=== PATIENT | male | born 1975 | race Caucasian/White ===

== ENCOUNTER 2016-06-28 21:39 | Inpatient (IN) | payer BC ==
--- NOTE | ~2016-06-28 | IDS ---
Interim Discharge Summary [facility] [address] [place] [place]. [address] NAME: STEVENSON FELIX JR : 79 STATUS : ADM IN PAT#: [id number] AGE: 41 ADM/REG DATE : 06/29/16 MR#: [id number] REPORT SERV DATE: 07/11/16 DICTATED BY: ROXIE CAMACHO DATE: 07/11/16 REPORT STATUS : Draft TRANSCRIBED BY: MODL DATE: 07/11/16 ADMISSION DATE: 06/29/2016 DISCHARGE DATE: DIAGNOSES: 1. Alcoholic hepatitis. 2. Hyperbilirubinemia with jaundice secondary to above. 3. Acute kidney injury with decreased urine output, resolved. 4. Left lower lobe infiltrate/pneumonia, treated. 5. Metabolic acidosis secondary to above. 6. Hepatic encephalopathy. 7. Edema secondary to hypoalbuminemia. CONSULTANTS: 1. Hepatology, Dr. Arcadio Melvin. 2. Hospitalist, Dr. Powell, Dr. Cerna, and Dr. Camacho. HOSPITAL COURSE: This interim summary is for the interim week of 07/05/2016 through 07/11/2016; therefore, please refer to H and P from Dr. Powell and interim summary from Dr. Cerna for further details. In short, this is a 41-year-old male, who presented from [place] due to family living locally in [place] with jaundice, confusion, shortness of breath, and severe debility with signs of left lower lobe pneumonia and acute kidney injury and the patient was treated with IV Zosyn for his pneumonia. Also, seen by Dr. Arcadio Melvin for his severe liver failure. During his initial care, he was seen by Dr. Cerna and the patient was placed on prednisone for an attempt to see if there was any improvement with MELD score/liver function. Initially, family were wondering if his liver failure could be secondary to Prilosec, for which the patient began to take shortly before presentation, Dr. Melvin does not agree and also due to the patient's history of increased alcohol intake, we made a definitive diagnosis of alcoholic hepatitis. Steroids were an attempt to see if there was any improvement. Per the chart, per Dr. Cerna, the patient's initial MELD score was 34. Currently, MELD score is at 24. His liver functions did have mild improvement and then worsened, and now there is improvement at this time, but very slow. There have been talks prior to taking over the patient's care concerning hospice with the patient and family by Dr. Cerna. Initially, the family was resistant. However, now, mother was stating at discharge they may consider a home hospice. The patient is initially supposed to have a seven-day trial of prednisone to check for improvement at 40 mg a day, but Dr. Melvin recommends to discontinue prednisone due to not much improvement with liver function, although the patient has had some very slow mild improvement with liver function. Now, the patient's prednisone is currently at 20 mg a day for a slow taper. The patient has some excellent family support and is encouraged a high-protein diet and is eating with good family support, who is encouraging high-protein intake, and also ambulating in the hallways with assistance with family. The patient was possibly to be discharged last week with home hospice and did receive medication assistance from Case Management for any new hepatic medications. However, the patient developed some acute kidney injury with decreased urine output and required management with low-dose IV fluid. Also, the patient had severe metabolic acidosis secondary to his liver failure as well as GI loss due to the patient Interim Discharge Summary [facility] [address] [place]. [address] NAME: ISIDROSTEVENSON Felipe PANG : 79 STATUS : ADM IN PAT#: [id number] AGE: 41 ADM/REG DATE : 06/29/16 MR#: [id number] REPORT SERV DATE: 07/11/16 DICTATED BY: ROXIE ACMACHO DATE: 07/11/16 REPORT STATUS : Draft TRANSCRIBED BY: QUETA DATE: 07/11/16 being on lactulose. The patient does have high stool output. His lactulose has been decreased from t.i.d. down to b.i.d., and he continues on Xifaxan. His sodium bicarb tablet dose has been increased today, and also he is on a bicarb drip that has been ordered. Daily labs also will be ordered for monitoring of electrolytes. Family and the patient understand and have been educated on poor prognosis from Dr. Melvin, please refer to his consult note also for further details. Also, important to note the patient has not had any DTs during this hospital stay. At this time, we will continue with current management, increase bicarb supplementation, and follow up with LFTs for now. The patient will be followed by Dr. Bria Jansen, who will attend to this patient's care initiating on 07/12/2016. HARLAN/MODL Roxie Camacho M.D. / [id number] CC: Roxie Camacho M.D.
--- NOTE | ~2016-06-28 | CN ---
Consultation Report [facility] [address] [place]. [address] NAME: STEVENSON FELIX JR : 79 STATUS : ADM IN PAT#: [id number] AGE: 41 ADM/REG DATE : 06/29/16 MR#: [id number] REPORT SERV DATE: 07/14/16 DICTATED BY: SULEMA MCGREGOR DATE: 07/13/16 REPORT STATUS : Draft TRANSCRIBED BY: MODL DATE: 07/13/16 DATE OF CONSULTATION: REASON FOR CONSULTATION: Acute kidney injury. ASSESSMENT: Suspect the patient had initially presented with type 2 hepatorenal syndrome. He has already had an elevated creatinine on his initial presentation on 06/29/2016 and creatinine has fluctuated to as low as 0.93 on 07/05/2016, but now up to 2.0 in the setting of what appears to be developing gram-negative sepsis in addition to the fact that he has likely going into type 1 hepatorenal syndrome. PLAN: Supportive Care for now to treat his metabolic acidosis that has been developing over the past 24 to 48 hours, changed from respiratory alkalosis now to a combined metabolic and both acidosis. In addition, placed on hypertonic bicarbonate infusion. We will correct his coagulopathy with FFP. He has already been placed on Sandostatin, Primatene, and IV albumin. I doubt whether we can resolve this in a conservative way. I talked with the patient and his mother. At this point, they are accepting that they are willing to try continuous replacement therapy. I have spoken with Dr. Long, and we will place a Vas-Cath in the morning after we correct his coagulopathy. Initiate the patient on [employer]. Unfortunately, per Dr. Arcadio Melvin's note, the patient's prognosis is extremely poor, and I think based on what was recommended, they were advised hospice and terminal services, but the patient at this time feels he would want to continue with care. History is obtained from the records available and his mother. HISTORY OF PRESENT ILLNESS: He is a 41-year-old with history of heavy alcohol use for multiple years now. He came into the hospital on 06/28/2016 with what appeared to be progressive worsening jaundice, shortness of breath, confusion. He is not known to have any significant acute liver injury prior to this admission and his lab work showed him to have a bilirubin of 7.9 and has subsequently risen. Creatinine again was 1.88, and he had a white count of 19,800, and at that time, the liver CT scan showed lingular and left lower lobe infiltrate, possible pneumonia, hepatomegaly, and hepatic steatosis with some gallbladder wall-thickening and sludge. The patient was admitted to the hospital. He had been taking Naprosyn at home. I was felt that he had underlying acute alcoholic hepatitis and as a consequence, Dr. Arcadio Melvin has been following him, it is based on Trental in addition to steroids in over a week. There did not appear to be any significant improvement in liver dysfunction. In addition Surgery was consulted, did not feel that he would benefit from a cholecystectomy. His lab work shows that his serum sodium initially on presentation was 114 and gradually risen up into the 130s by 07/01/2016, by 07/08/2016, it was 138, and now it is actually 150. He has significant lower limb edema at this time. His serum bicarbonate initially was 20, fluctuated as low as 11 this afternoon at 0355 hours and now 13. Again, he denies any prior history of difficulty in voiding, hematuria, or prior known kidney disease. PAST MEDICAL HISTORY: Includes alcohol and tobacco use, left knee replacement, and appendectomy. Consultation Report [address] [place]. [address] NAME: STEVENSON FELIX JR : 79 STATUS : ADM IN [facility]#: [id number] AGE: 41 ADM/REG DATE : 06/29/16 MR#: [id number] REPORT SERV DATE: 07/14/16 DICTATED BY: SULEMA MCGREGOR DATE: 07/13/16 REPORT STATUS : Draft TRANSCRIBED BY: QUETA DATE: 07/13/16 HOME MEDICATIONS: Actually Naprosyn and Prilosec. SOCIAL HISTORY: Smokes about a pack a day. Drinks two to four drinks daily since the age of 19, used to be 8 to 10 was what they described. 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 FAMILY HISTORY: Mother is healthy. Siblings are healthy. Father has a history of diabetes and prostate cancer. HOME MEDICATIONS: His current medications include Co Q10, lactulose, Claritin, Habitrol, Mycostatin, Trental, prednisone, rifaximin, sodium bicarbonate, Carafate, thiamine, vitamin E. REVIEW OF SYSTEMS: System review is as per the HPI. PHYSICAL EXAMINATION: GENERAL: He is ill appearing. He is deeply jaundiced. He is pale. He is awake and alert, but there is period of confusion obviously. No asterixis is noted. VITAL SIGNS: Blood pressure 77/48, heart rate 118, afebrile. HEENT: He is deeply jaundiced. Oral mucosa is dry. This jaundiced skin is deeply pigmented. Pupils are reacting to light. Air entry is equal bilaterally. CHEST: Clear to auscultation. CARDIAC: [place] beats not displaced. S1, S2. No rub. ABDOMEN: Mild distention. There is no hepatosplenomegaly. There is some ascites. He has about 3+ peripheral edema. He is awake and alert, will follow simple commands. LABORATORY DATA: Blood gas 7.43, 20, 49, 83.6. Sodium 150, potassium 3.2, chloride 117, CO2 of 13, BUN 21, creatinine 2.0, calcium 7.7. GT was 854 on 07/06/2016. LDH 410. Alkaline phos 324. Total bilirubin is now up to 19.1, previously, it started at 27.9. Hemoglobin 13.5, hematocrit 41.3, white count 11.4, platelet count 44,000, and this appears to be declining. His urinalysis showed a specific gravity of 1.018 today and urine chemistries are pending. MG/MODL Sulema Mcgregor M.D. / [id number] CC: Consultation Report [address] [address] NAME: STEVENSON FELIX JR : 79 STATUS : ADM IN [facility]#: [id number] AGE: 41 ADM/REG DATE : 06/29/16 MR#: [id number] REPORT SERV DATE: 07/14/16 DICTATED BY: SULEMA MCGREGOR DATE: 07/13/16 REPORT STATUS : Draft TRANSCRIBED BY: MODL DATE: 07/13/16 Shekhar Gray M.D.
--- NOTE | ~2016-06-28 | IDS ---
Interim Discharge Summary [facility] [address] [place]. [address] NAME: STEVENSON FELIX JR : 79 STATUS : ADM IN PAT#: [id number] AGE: 41 ADM/REG DATE : 06/29/16 MR#: [id number] REPORT SERV DATE: 07/05/16 DICTATED BY: LIU ALAMO DATE: 07/05/16 REPORT STATUS : Draft TRANSCRIBED BY: MODL DATE: 07/05/16 ADMISSION DATE: 06/29/2016 DISCHARGE DATE: 07/05/2016 DATE OF INTERIM DISCHARGE: 07/05/2016. PROCEDURES DONE: 1. 06/28/2016, CT of the head without contrast: No acute intracranial pathology. 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 2. 06/28/2016, chest x-ray: Normal chest. 3. 06/28/2000, CT of abdomen and pelvis without contrast: Patchy ill-defined infiltrates in the lingular segment with minor focal infiltrates in the medial and left lower lobe suggesting left-sided pneumonia pattern in the appropriate clinical setting. Marked hepatomegaly and hepatic steatosis pattern. Gallbladder filled with probable hyperdense sludge with suggestion of mild gallbladder wall thickening with infiltration of the surrounding fat planes. No discrete radiodense gallstones, although calculous cholecystitis associated with low-density gallstones should be considered. Diffuse thickening of the cecum and proximal ascending colon with infiltration of surrounding fat plane is suggestive of a short-segment right-sided colitis or possibly typhilitis pattern depending on immune status of the patient with mild diffuse thickening of terminal ileum, may represent reactive changes associated with adjacent inflammatory process involving the cecum, less likely terminal ileitis pattern. Status post appendectomy. Nonspecific small volume low-density pelvic ascites. 4. 06/29/2016, gallbladder ultrasound: Hepatomegaly which is consistent with fatty liver. The liver, gallbladder, and common bile duct are normal. Right kidney normal. Vena cava identified. Pancreas, attempted, not seen. 5. 06/30/2015, chest x-ray: No acute cardiopulmonary abnormality. CONSULT: Dr. Arcadio Melvin M.D. for GI. REASON FOR ADMISSION: Jaundice and confusion. HISTORY OF HOSPITAL STAY: A 41-year-old white male with no significant past medical history presenting with jaundice and confusion. The patient was initially admitted in the [facility] for observation due to the fact that the patient came in with acute alcohol hepatitis. The patient had a MELD score of 34 at the time of presentation. The patient was started on oral prednisone at the time of presentation on 06/29/2016. The patient came out of [facility] on 07/02/2016 with a MELD score of 25. From his initial presentation, the patient's MELD score seems to be improving. The patient has been receiving supportive care for his acute hepatitis with steroids. However, the patient is not improving with his total bilirubin dropping more than 30% with steroids. The family has been made aware that treatment options for alcoholic hepatitis are very limited at this time. If the patient's alcoholic hepatitis continues to worsen, there is a possibility the patient will need comfort care/hospice care. DIAGNOSIS: Jaundice and confusion secondary to acute alcohol hepatitis. Interim Discharge Summary [address] [address] NAME: STEVENSON FELIX JR : 79 STATUS : ADM IN [facility]#: [id number] AGE: 41 ADM/REG DATE : 06/29/16 MR#: [id number] REPORT SERV DATE: 07/05/16 DICTATED BY: LIU ALAMO DATE: 07/05/16 REPORT STATUS : Draft TRANSCRIBED BY: QUETA DATE: 07/05/16 The patient has been receiving steroids 40 mg p.o. daily. The patient's steroid was started on 06/29/2016 with the end date of 07/05/2016. The patient's total bilirubin is not dropping more than 30% to consider stopping the steroids altogether. More importantly, discussion with the family regarding hospice has been approached. Although the family is aware that his labs/condition might not improve, the family is having a tough time accepting his medical condition. Acute alcohol hepatitis. Continue supportive care at this time. Stop steroids on 07/05/2016 for a full 7 of 7 days. Hepatic encephalopathy, continue rifaximin and lactulose. Ammonia level continues to increase. Hyponatremia, much improved with fluid resuscitation. Hospice/end of life discussion, attempts have been made to approach the family regarding comfort care. Again, the family is very slow in accepting the patient's overall condition being poor. The family is trying/grasping in all treatments that can help the patient. Unfortunately, the patient's liver function is deteriorating despite treatment. SUSU/QUETA Liu Alamo MD / [id number]
--- NOTE | ~2016-06-28 | OP ---
Record Of Operation [facility] [address] [place]. [address] NAME: STEVENSON FELIX JR : 79 STATUS : ADM IN PAT#: [id number] AGE: 41 ADM/REG DATE : 06/29/16 MR#: [id number] REPORT SERV DATE: 07/14/16 DICTATED BY: MAVERICK TUBBS DATE: 07/13/16 REPORT STATUS : Draft TRANSCRIBED BY: MODNathaly DATE: 07/13/16 DATE OF PROCEDURE: 07/13/2016 TITLE OF PROCEDURE: Central venous catheter placement. INDICATION: Septic shock. PROCEDURE NOTE: Time-out was completed verifying correct patient and procedure. The patient was placed in a flat position. The patient's right groin was prepped and draped in a sterile fashion. About 1% lidocaine was used to anesthetize the surrounding skin area. A triple-lumen catheter was introduced into the right common femoral vein using the Seldinger technique under ultrasound guidance. The catheter was threaded smoothly over the guidewire, and appropriate blood return was obtained. Each lumen of the catheter was evacuated of air and flushed with sterile saline. The catheter was then sutured in place to the skin and a sterile dressing applied. I was present for the entire procedure. The patient tolerated the procedure well. There were no complications with less than 5 mL of estimated blood loss. YAIR/QUETA Maveirck Tubbs MD / [id number] CC: Shekhar Gray M.D.
--- NOTE | ~2016-06-28 | CN ---
Consultation Report [facility] [address] [place]. [address] NAME: STEVENSON FELIX JR : 79 STATUS : ADM IN PAT#: [id number] AGE: 41 ADM/REG DATE : 06/29/16 MR#: [id number] REPORT SERV DATE: 07/01/16 DICTATED BY: ARCADIO MELVIN DATE: 07/01/16 REPORT STATUS : Draft TRANSCRIBED BY: MODL DATE: 07/01/16 CONSULTATION DATE OF CONSULTATION: 06/30/2016 REASON FOR CONSULTATION: Liver failure. HISTORY OF PRESENT ILLNESS: Mr. Felix is a 41-year-old male, who is from [facility] without significant past medical history, who presented to the emergency room due to progressive jaundice, shortness of breath, confusion, debilitation, and fall. He has been drinking about 8-10 drinks a day since the age of 19, got early May of this year and he has cut back since, but still drinking about four a day, the last drink was about a couple of days prior to arrival to the hospital. He has not been feeling well for two weeks or so. He claims he started taking Prilosec over the counter around 06/17 for gastroesophageal reflux disease and chest tightness, and all the problems started after that. He also started getting confused and had fall at home. A friend called ambulance, but he refused to go to the hospital. Dad went to the [place] area and brought him to [place], and then he was brought to the hospital since according to dad he just did not look well with significant jaundice and weakness. In the emergency room, he was found having severe hyponatremia with a sodium of 112 with acute kidney injury and hyperbilirubinemia with bilirubin of 27. Initial CT scan of the abdomen was unremarkable. He had ultrasound of the abdomen that was also unremarkable in terms of liver masses. Admitted with acute alcoholic hepatitis with possible drug-induced liver injury, started on lactulose, he got IV fluids. Sodium was checked every three or four hours, which is improving. On the day of consult, sodium was 123. The patient is more alert and awake, able to communicate, and able to answer questions appropriately. 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 PAST MEDICAL HISTORY: Alcohol use and tobacco use. PAST SURGICAL HISTORY: Left knee replacement and appendectomy. ALLERGIES: NONE. MEDICATIONS AT HOME: Naproxen 220 twice a day, multivitamin daily, recent use of Prilosec. SOCIAL HISTORY: Smokes about pack a day. Drinks two to four daily since the age of 19, it used to be 8-10 a day, recent decrease in the dose due to social problem. 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 Does not have insurance at this time. Works in the [place] area. FAMILY HISTORY: Mother is healthy. Siblings are healthy. Father with history of diabetes and prostate cancer. Consultation Report [address] [place]. [address] NAME: STEVENSON FELIX JR : 79 STATUS : ADM IN PAT#: [id number] AGE: 41 ADM/REG DATE : 06/29/16 MR#: [id number] REPORT SERV DATE: 07/01/16 DICTATED BY: ARCADIO MELVIN DATE: 07/01/16 REPORT STATUS : Draft TRANSCRIBED BY: QUETA DATE: 07/01/16 REVIEW OF SYSTEMS: As per HPI. Detailed systems reviewed. Significant positives are weakness, fatigue, fall, jaundice, generalized ache, bruises, gastroesophageal reflux disease, nausea, poor appetite, and some weight loss. Other systems are reviewed in detailed and negative. PHYSICAL EXAMINATION: GENERAL: Well developed, well nourished, icteric, alert, awake, slow memory, recall is poor. VITAL SIGNS: Blood pressure 103/62, pulse 80, respirations 16, pulse ox 95% to 97%, temperature 98. EYES: Have pallor, also have icterus. Pupils equal, round, and reactive to light. NECK: Supple. No JVD or thyromegaly. LUNGS: Bilateral decreased air entry. Bibasilar rales. No wheezing. HEART: S1 and S2 present. Rate and rhythm regular. No murmur or gallop. ABDOMEN: Soft, a bit distended. Possible mild ascites and hepatomegaly. No splenomegaly. Bowel sounds normal. No hernia. EXTREMITIES: Minimal edema. No varicose veins. No signs of DVT. NEURO: No focal deficits. Cranial nerves are grossly intact. Speech normal. Memory sluggish. MUSCULOSKELETAL: Gait and station, did not evaluate. Does not have clubbing or cyanosis. LABORATORY DATA: Lab work shows sodium 123, potassium 3.3, chloride 88, bicarb 20, BUN 22, creatinine 1.33, albumin 1.9, total bilirubin 26.2 with direct of 23.5, ALT 116, AST 291, alkaline phosphatase 553, lipase 329. Ferritin 3456. Tylenol level less than 2. Salicylate less than 1.7. Alcohol less than 10. TSH 0.57. Ammonia 81. Serum osmolality 245. Lactate 2.2. Hepatitis serology negative. WBC 24, hemoglobin 11.6, platelet 141. INR 1.6. Ceruloplasmin 28. Urine drug screen, negative. IMPRESSION: 1. Alcoholic hepatitis with MELD score of 31, MELD-sodium score of 35, Maddrey index is 57, ABIC score is 7.89, 90-day survival is 65%, Poyen score is 10, and 46% of 30-day survival. Hepatitis serology is negative clinically. Alcohol-related fulminant acute hepatitis with possible underlying alcoholic cirrhosis. 2. Alcoholism, chronic, for about 21 years. Continued drinking until two days prior to arrival. 3. Hepatic encephalopathy due to liver failure. 4. Severe hyponatremia due to poor intake and chronic alcoholism, improving with IV fluid. 5. Malnutrition, severe due to liver disease, poor oral intake and chronic alcoholism. 6. Debilitation. PLAN/SUGGESTION: 1. I had a lengthy discussion with the patient and his sister, parents were not available, about current situation, prognosis and further management. 2. With ongoing alcohol use, not a candidate for liver transplant, but I suggested if they Consultation Report [address] [place]. [address] NAME: ISIDROSTEVENSON Felipe PANG : 79 STATUS : ADM IN PAT#: [id number] AGE: 41 ADM/REG DATE : 06/29/16 MR#: [id number] REPORT SERV DATE: 07/01/16 DICTATED BY: ARCADIO MELVIN DATE: 07/01/16 REPORT STATUS : Draft TRANSCRIBED BY: MODL DATE: 07/01/16 wish to transfer him to a transplant center, they have to call. I do not think he will be accepted from here at either [facility] or [place] due to alcohol history. 3. Also, has a social situation. The patient lives alone, recently , and does not have insurance that will have also a big impact on his overall care. 4. Meantime, we will continue multivitamin, thiamine, folic acid. 5. Decrease IV fluid to 50 mL an hour. 6. Start diet with Ensure three times a day and 1.5 L total fluid restriction by mouth. 7. Continue lactulose and add Xifaxan 550 twice a day. We will decrease lactulose to 30 mL twice a day, target three to four bowel movements daily. 8. Daily labs. 9. Agree with prednisone 40 mg a day for seven-day trial. If he has significant improvement and bilirubin drops more than 30% in seven days, then we can continue tapering dose, but definitely needs a very close followup. If bilirubin does not improve, prednisone will not help much. 10.We will add vitamin E and CoQ10. 11.We can add pentoxifylline 400 mg daily if renal function is stable. If renal function worsens, pentoxifylline will be discontinued. 12.Again, discussed with family about prognosis and very high risk of complications including infection, fall, bleeding, encephalopathy. He cannot take any nonsteroidal anti-inflammatory, Tylenol, or any other [id number] medicine without confirming with a physician. 13.Cannot live alone, needs 24/7 care at home. 14.If he does get complications and does not improve, we will have to consider hospice. 15.Also, informed family if they wish to transfer, they can call the hospital and make arrangement, but as per my opinion, he is not a candidate for liver transplant and I will not be able to get him transferred with the alcohol use until the admission. I will be out of town until 07/06/2016. Please do not hesitate to call me if you have any question or concern. CP/MODL Arcadio Melvin M.D. / [id number] CC: Rich Pederson M.D.
--- NOTE | ~2016-06-28 | HP ---
History And Physical [place] [id number] [facility] [place]. [address] NAME: STEVENSON FELIX JR : 79 STATUS : ADM IN PAT#: [id number] AGE: 41 ADM/REG DATE : 06/29/16 MR#: [id number] REPORT SERV DATE: 06/29/16 DICTATED BY: LI CEBALLOS DATE: 06/29/16 REPORT STATUS : Draft TRANSCRIBED BY: MODNathaly DATE: 06/29/16 DATE OF ADMISSION: 06/28/2016 POINT OF ENTRY: [facility]. PRIMARY CARE PHYSICIAN: None at this time. CHIEF COMPLAINT: Jaundice, confusion, and shortness of breath. HISTORY OF PRESENT ILLNESS: Mr. Felix is a 41-year-old gentleman with no significant previous medical history, who presents to the emergency department with a four-day history of progressive worsening jaundice with associated shortness of breath and confusion. The patient states that he recently initiated some [id number] Prilosec at the recommendation of a colleague for concerns for possible gastroesophageal reflux disease. The patient states he takes omeprazole for about four days but then stopped as he started to notice some jaundice as well as was not feeling well. He states he first noticed the jaundice on , but according to friends and family members, the patient started to feel better over the weekend and felt that the jaundice might actually have started to improve. On Monday, the patient started to develop rapid progression of his jaundice as well as confusion concerning both his work colleagues as well as family members. He does report some subjective fevers, as well as anorexia and some shortness of breath, but denies any night sweats, chills, cough, sputum production, and chest pain. The patient states that he has noticed some darker urine for the past few days as well as some loose stools. Denies any ivis-colored stools. Again, as I mentioned above, does endorse some anorexia but denies any nausea or vomiting. He denied any abdominal pain until he was here in the emergency department and underwent serial abdominal examinations as well as abdominal ultrasound. The patient denies any prior history of liver disease. States that he does drink on almost daily basis of a few drinks per day. Denies any prior history of alcoholic hepatitis, cirrhosis, delirium tremens, or hallucinations. Initial evaluation in the emergency department notable for markedly abnormal labs including a sodium level of 114, a BUN of 31, creatinine 1.88, bilirubin of 7.9 with AST greater than ALT type pattern. The patient also has a mildly elevated lactic acid of 3.2, ammonia level of 129, and white count of 19,800. CT scan of the abdomen and pelvis showed lingular and left lower lobe infiltrate concerning for possible pneumonia as well as marked hepatomegaly and hepatic steatosis with some gallbladder wall thickening and sludge as well as a diffusely thickened cecum and proximal ascending colon concerning for colitis versus typhlitis . Abdominal ultrasound was obtained, which again showed mild gallbladder wall thickening and sludge but no evidence of any stones or pericholecystic fluid concerning for cholecystitis. The patient was started on IV Zosyn as well as IV fluids and admitted to the Hospitalist Service for further evaluation and management. History And Physical [address] [address] NAME: STEVENSON FELIX : 79 STATUS : ADM IN [facility]#: [id number] AGE: 41 ADM/REG DATE : 06/29/16 MR#: [id number] REPORT SERV DATE: 06/29/16 DICTATED BY: LI CEBALLOS DATE: 06/29/16 REPORT STATUS : Draft TRANSCRIBED BY: MODNathaly DATE: 06/29/16 REVIEW OF SYSTEMS: Comprehensive review of systems otherwise negative unless listed in history of present illness. PREVIOUS MEDICAL HISTORY: 1. Alcohol abuse. 2. Tobacco abuse. SURGICAL HISTORY: 1. Left knee replacement. 2. Appendectomy. ALLERGIES: NO KNOWN DRUG ALLERGIES. HOME MEDICATIONS: 1. Naproxen 220 mg b.i.d. p.r.n. 2. Multivitamin one tab daily. SOCIAL HISTORY: Does smoke about a pack per day. Drinks two to four drinks daily. Again, denies any history of alcohol induced seizures, hallucinations, or delirium tremens. Denies any illicits. 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 FAMILY MEDICAL HISTORY: Mother is healthy. Siblings are healthy. Father with history of diabetes and prostate cancer. There is no extended family history of cholangiocarcinoma or liver disease, but there is extended family history of abnormal gallbladder and/or biliary system as his mother required cholecystectomy at a very early age and has had some aunts and other female relatives who had either absent or duplicative gallbladders. LABS AND IMAGIN. White count is 19.8, hemoglobin is 12.9, hematocrit is 35.6, and platelet count is 180. INR is 1.5. MCV is 106.6. 2. Sodium is 114, potassium 2.3, chloride 72, carbon dioxide 20, BUN 31, creatinine 1.8, glucose is 125, calcium 7.5, protein is 4.9, albumin is 1.8, bilirubin is 27.9, ALT is 141, AST 291, alkaline phosphatase is 740. 3. Lipase is 329. 4. Ammonia level 129. 5. Lactic acid 3.2. 6. Alcohol, acetaminophen, and aspirin levels are negative. 7. CT scan of the brain shows no acute changes. 8. Chest x-ray per my review shows no acute cardiopulmonary abnormality but poor inspiration. 9. CT scan of the abdomen and pelvis shows lingular and left lower lobe infiltrate concerning for possible pneumonia as well as marked hepatomegaly and hepatic steatosis. Mild gallbladder wall thickening and sludge as well as diffusely thickened cecum and proximal ascending colon concerning for colitis versus typhlitis as well as small volume ascites. History And Physical [address] [address] NAME: STEVENSON FELIX : 79 STATUS : ADM IN [facility]#: [id number] AGE: 41 ADM/REG DATE : 06/29/16 MR#: [id number] REPORT SERV DATE: 06/29/16 DICTATED BY: LI CEBALLOS DATE: 06/29/16 REPORT STATUS : Draft TRANSCRIBED BY: QUETA DATE: 06/29/16 10.Right upper quadrant ultrasound per verbal report shows no stones but did show sludge as well as mild gallbladder wall thickening. PHYSICAL EXAMINATION: VITAL SIGNS: Temperature is 97.0 degrees Fahrenheit, pulse is 87, respirations 24, saturating 99% on room air, blood pressure 103/61. GENERAL: The patient is awake, alert, in no acute distress. Resting comfortably in bed. He is a markedly jaundiced appearing young male. HEENT: Atraumatic and normocephalic. Dry mucous membranes. Pupils are equal and round and reactive to light and accommodation. Extraocular eye movements intact. Positive scleral icterus. NECK: No jugular venous distention. No carotid bruits. CARDIAC: Regular rate and rhythm. No murmurs, rubs, or gallops. Normal S1, S2. LUNGS: Clear to auscultation bilaterally. No wheezes, rhonchi, or crackles. ABDOMEN: Hypoactive bowel sounds throughout. He is diffusely tender to palpation on exam with some voluntary guarding but no rebound, guarding, or rigidity. EXTREMITIES: Warm and well perfused. Does have some 1+ primarily pedal distal lower extremity edema. SKIN: Markedly jaundiced, otherwise, warm and dry. Does have evidence of spider angiomata over his anterior chest. PSYCH: Affect is slightly blunted. NEURO: He is alert and oriented x3. He is somewhat slow to respond to certain questions. Cranial nerves 2 through 12 are grossly intact. Speech is slow but purposeful and normal. Gait was not assessed. No evidence of any upper extremity tremor at this time. There is some mild asterixis on upper extremity extension. ASSESSMENT AND PLAN: Mr. Felix is a 41-year-old gentleman who presents with a few day history of feeling poorly with associated anorexia, subjective fevers, and found to have a profound jaundice. PROBLEM LIST: 1. Acute liver failure. 2. Alcoholic hepatitis. 3. Severe hyponatremia. 4. Hepatic encephalopathy. 5. Hypokalemia. 6. Leukocytosis. 7. Severe sepsis. 8. Possible cholecystitis. 9. Colitis versus typhlitis. 10.Possible pneumonia. 11.Acute kidney injury. 12.Alcohol abuse. 13.Encephalopathy. 14.Microcytosis. 15.Hypoalbuminemia. History And Physical [address] [address] NAME: STEVENSON FELIX : 79 STATUS : ADM IN [facility]#: [id number] AGE: 41 ADM/REG DATE : 06/29/16 MR#: [id number] REPORT SERV DATE: 06/29/16 DICTATED BY: LI CEBALLOS DATE: 06/29/16 REPORT STATUS : Draft TRANSCRIBED BY: MODL DATE: 06/29/16 PLAN: 1. Alcoholic hepatitis. Given the patient's history of alcohol abuse as well as the pattern of his transaminitis as well as evidence of chronic liver disease including an elevated MCV level as well as hepatomegaly and hepatic steatosis, I suspect that a lot of the patient's symptoms may be explained by alcoholic hepatitis. His MELD score is 34, and Maddrey's function is 44 portending a poor prognosis. We will place him on oral prednisolone therapy for elevated Maddrey's discriminant function as well as consult Hepatology for assistance. 2. Transaminitis. Again, the patient's transaminitis is likely related to alcohol abuse. However, given evidence of an abnormal gallbladder, concern for biliary dysfunction, and other potential etiologies such as Jose's disease and viral hepatitis infection is also a consideration. Checking urine drug screen, viral hepatitis panel, and serum ceruloplasmin levels. We will have Radiology read the abdominal ultrasounds performed overnight as well as hepatology consultation. 3. Possible cholecystitis. The patient does have some sludge and a gallbladder wall thickening in the setting of leukocytosis and abdominal pain concerning for possible cholecystitis. General Surgery has been consulted to see patient in the morning. In the meantime, we will place the patient on empiric Zosyn. 4. Typhlitis versus colitis. Again, placed on IV antibiotics. General Surgical as well as GI consultation is pending. 5. Severe hyponatremia. The patient is not on any diuretics. Denies any history of water access. Therefore, I suspect this is related to his liver dysfunction. We will check q.4 hour BMPs as well as checking thyroid function studies, urine lytes, and serum Osmo to better elucidate the etiology. Given the patient's BLESSING and hypotension, he is requiring aggressive IV fluid resuscitation. 6. Hypokalemia. Repleting p.r.n. 7. Severe sepsis. The patient has elevated white count, multiple potential source of infection, as well as elevated lactic acid level concerning for severe sepsis especially in the setting of encephalopathy. Placing the patient on IV fluids as well as broad-spectrum antibiotics. Follow up blood cultures. 8. Hepatic encephalopathy. The patient's ammonia level is elevated at 129. He is currently maintaining an airway. We will place the patient on some lactulose therapy. 9. Acute kidney injury. The patient's creatinine is also elevated. We do not have a baseline for comparison. We will provide IV fluid hydration. Avoid nephrotoxic medications. Checking urinalysis as well as urine lytes. 10.Possible pneumonia and shortness of breath. He is saturating well on room air, and I do not appreciate any wheezes or rhonchi on examination. He does have some infiltrates on CT of the abdomen and pelvis noted for possible pneumonia. However, Zosyn has already been ordered. 11.DVT prophylaxis. SAURAV's and SCD's given risk of bleeding. CODE STATUS: The patient wished to be full code. Critical care time spent on patient approximately 60 minutes. History And Physical [place] [id number] [facility] [address] [place]. [address] NAME: STEVENSON FELIX JR : 79 STATUS : ADM IN [facility]#: [id number] AGE: 41 ADM/REG DATE : 06/29/16 MR#: [id number] REPORT SERV DATE: 06/29/16 DICTATED BY: LI CEBALLOS DATE: 06/29/16 REPORT STATUS : Draft TRANSCRIBED BY: QUETA DATE: 06/29/16 LINDA/QUETA Li Ceballos MD / [id number]
--- NOTE | ~2016-06-28 | DS ---
Discharge Summary [facility] [address] [place]. [address] NAME: STEVENSON FELIX JR : 79 STATUS : DIS IN PAT#: [id number] AGE: 41 ADM/REG DATE : 06/29/16 MR#: [id number] REPORT SERV DATE: 07/26/16 DICTATED BY: DATE: REPORT STATUS : Draft TRANSCRIBED BY: MODL DATE: 07/25/16 ADMISSION DATE: 06/29/2016 DISCHARGE DATE: 07/19/2016 The patient was admitted to the [facility]ist [facility]. The brick picker service also served as his attending during the hospitalization. CONSULTANTS: Included Hepatology, Dr. Arcadio Melvin; Nephrology, Dr. Dimitry Mcgregor. DIAGNOSES AT : 1. Acute liver failure, suspected due to alcohol abuse. 2. Sequelae of acute liver failure to include refractory edema, hepatorenal syndrome type 2, coagulopathy, hyperbilirubinemia, hepatic encephalopathy. 3. Left upper lobe pneumonia - suspect healthcare acquired pathogen. 4. Escherichia coli bacteremia. 5. Severe sepsis with multiorgan failure and septic shock. 6. Mixed metabolic and respiratory acidosis due to liver failure, renal failure, and sepsis. BRIEF HISTORY: For full details, please see the previously dictated history of present illness by Dr. Powell on 06/29. This is a 41-year-old white male with no significant prior medical history, brought to the emergency department by family with a four-day history of progressively worsening jaundice with associated shortness of breath and confusion. Initial evaluation in the emergency department was notable for sodium of 114, BUN of 31, creatinine of 1.8, bilirubin 7.9 with AST greater than ALT. Lactic acid level was elevated and ammonia level was 129. CT of the abdomen and pelvis showed lingular and left lower lobe infiltrate concerning for possible pneumonia, as well as marked hepatomegaly and hepatic steatosis. The patient was admitted to the Hospitalist Service for further evaluation and management of newly diagnosed acute liver failure, alcohol induced acute hepatitis, severe hyponatremia, hepatic encephalopathy, leukocytosis with probable sepsis, and other electrolyte abnormalities as noted above. HOSPITAL COURSE: For full details, please reference the previously dictated interim discharge summaries by Dr. Cerna and Dr. Hugo on 07/05 and 07/11 respectively. I assumed care of the patient on Monday, 07/12. The patient previously had been seen by Dr. Arcadio Melvin for the severe acute liver failure due to acute alcohol-induced hepatitis. Recommendation was for hospice care earlier in the hospitalization; however, the patient had remained in the hospital while various aspects of electrolytes and renal function were attempted to be corrected. When I assumed care of him on the , his mother reported that he had a "bad night" the night preceding, that he had been unable to rest, seemed more confused than normal, and seemed to be short of breath. Various labs were obtained in attempt to determine the cause of the symptoms, and chest x-ray was obtained as well. This revealed a new left upper lobe pneumonia, and also evidence of new gram-negative bacteremia. The patient remained stable on the morning of 07/13, and was initiated on broad-spectrum Discharge [address] [address] NAME: STEVENSON FELIX JR : 79 STATUS : DIS IN PAT#: [id number] AGE: 41 ADM/REG DATE : 06/29/16 MR#: [id number] REPORT SERV DATE: 07/26/16 DICTATED BY: DATE: REPORT STATUS : Draft TRANSCRIBED BY: MODL DATE: 07/25/16 antibiotics including vancomycin and Zosyn. His creatinine was becoming elevated, and multiple discussions were had with Hepatology and Nephrology that this likely represented hepatorenal syndrome type 2, in response to acute infection. Various medications were started to include primidone, Sandostatin, albumin, Lasix, and broad-spectrum antibiotics, vancomycin, and Zosyn. The patient confirmed on the that he wished to remain a full code. On the evening of the , despite maximal medication management, the patient suffered a rapid response call for hypoxemic respiratory failure with oxygen saturations briefly in the low 70s. He was transferred to the intensive care unit on the evening of the where Dr. Arteaga served as his attending from the through the . The brick picker discussed daily with the patient and family that his condition remained very fragile given multiorgan failure, left upper lobe pneumonia, E. coli bacteremia, and severe sepsis with septic shock. The patient was managed in the intensive care unit with pressors until additional family members and friends could come to visit with him at the bedside, and ultimately the decision to make him comfort measures only occurred on 07/18. The patient was transferred out of the ICU to [address] [place] [address] at the family's request, and he passed peacefully on the morning of 07/19 with family at the bedside. IRENE/QUETA Shekhar Gray M.D. / [id number] CC: Shekhar Gray M.D.
[2016-06-28 22:53] LABS: BASOPHILS 0.2 %; BASOPHILS ABSOLUTE 0.03 10/3/uL (0.0-0.16); EOSINOPHILS 0.6 %; HEMATOCRIT 35.6 % (40.0-51.0); HEMOGLOBIN 12.9 g/dL (13.6-17.8); IMMATURE GRANULOCYTES 4.9 %; IMMATURE GRANULOCYTES ABSOLUTE 0.97 10/3/uL (0.0-0.11); LYMPHOCYTES 2.7 %; LYMPHOCYTES ABSOLUTE 0.53 10/3/uL (0.67-4.30); MEAN CORPUS HGB CONC 36.2 g/dL (32.0-36.0); MEAN CORPUSCULAR HEMOGLOB 38.6 pg (26.0-34.0); MEAN CORPUSCULAR VOLUME 106.6 fL (80-100); MEAN PLATELET VOLUME 12.3 fL (9.2-13.0); NEUTROPHILS 87.6 %; NEUTROPHILS ABSOLUTE 17.37 10/3/uL (2.02-8.40); PLATELET COUNT 180 10/3/uL (150-400); RBC DISTRIBUTION WIDTH 14.9 % (12.0-16.0); RED CELL COUNT 3.34 10/6/uL (4.7-6.1); WHITE BLOOD CELLS 19.8 10/3/uL (4.5-10.5)
[2016-06-28 22:54] LABS: EOSINOPHILS ABSOLUTE 0.11 10/3/uL (0.0-0.53); ER CBC TAT 0 Hrs 14 Mins; MANUAL DIFF NO %
[2016-06-28] MEDS ORDERED: THERGRANM PO (22:55)
[2016-06-28] MEDS ORDERED: ALEVE220 MG PO (22:55)
[2016-06-28 23:03] LABS: INTERNATIONAL NORMAL RATI 1.5 UNITS (-); PARTIAL THROMBO TIME 36.3 SEC (22.5-37.2); PROTIME (NOT ORD) 17.6 SEC (12.0-14.5)
[2016-06-28 23:14] LABS: BAND NEUTROPHILS 18 %; ER DIFF TAT 0 Hrs 38 Mins; IMMATURE GRANS ABSOLUTE (CALC) 0.79 10/3/uL (0.0-0.11); LACTATE 3.2 MMOL/L (0.3-2.4); MACROCYTES 1+ (5-10/OIF) (0-5/OIF); METAMYELOCYTES 4 %; MONOCYTES 4 %; MONOCYTES ABSOLUTE (CALC) 0.79 10/3/uL (0.21-1.20); NEUTROPHILS ABSOLUTE (CALC) 18.22 10/3/uL (2.02-8.40); PLATELET ESTIMATE ADQ (ADEQUATE); SEGMENTED NEUTROPHIL (0) 74 %; TOTAL NUCLEATED CELLS 100
[2016-06-28 23:22] LABS: ALBUMIN 1.8 G/DL (3.5-5.0); ALKALINE PHOSPHATASE 740 U/L (45-117); BUN (BLOOD UREA NITROGEN) 31 MG/DL (6-23); CALCIUM, SERUM 7.5 MG/DL (8.5-10.4); CHLORIDE, SERUM 72 MMOL/L (96-112); CO2 (CARBON DIOXIDE) 20 MMOL/L (24-34); DIRECT BILIRUBIN 23.5 MG/DL (0.0-0.4); GLUCOSE, SERUM 125 MG/DL (60-99); SGOT(AST) 391 U/L (5-40); SGPT(ALT) 141 U/L (5-65)
[2016-06-28 23:23] LABS: POTASSIUM, SERUM 2.3 MMOL/L (3.5-5.3); SODIUM, SERUM 114 MMOL/L (135-148)
[2016-06-28 23:24] LABS: CREATININE 1.88 MG/DL (0.70-1.30); GFR AFRICAN AMERICAN 51 ML/MIN (>=60); GFR NON AFRICAN AMERICAN 44 ML/MIN (>=60)
[2016-06-28 23:25] LABS: A/G RATIO 0.6 (0.7-1.9); ACETAMINOPHEN LEVEL (TYLENOL) < 2.0 MCG/ML (10.0-20.0); GLOBULIN 3.1 G/DL (2.5-4.1); INDIRECT BILIRUBIN(NOT ORDER) 4.4 MG/DL (0.1-0.9); TOTAL BILIRUBIN 27.9 MG/DL (0-1.2); TOTAL PROTEIN 4.9 G/DL (6.0-8.5)
[2016-06-28 23:26] LABS: ALCOHOL < 10 MG/DL (0); SALICYLATE < 1.7 MG/DL (-)
[2016-06-29 04:22] LABS: ASCORBIC ACID (UR NOT ORDER) NEG (NEG); BILIRUBIN, URINE MODERATE (NEG); ER URINALYSIS TAT 0 Hrs 00 Mins; KETONE, URINE NEGATIVE (NEG); LEUKOCYTE ESTERASE(NOT OR NEG (NEG); NITRITE (URINE) NEG (NEG); WBC (NOT ORDERED) (RFLEX) 1 (0-5)
[2016-06-29 04:36] LABS: AMPHETAMINES (NOT ORD) NEG (NEG); BARBITURATES (NOT ORDERED NEG (NEG); BENZODIAZEPINES (NOT ORD) NEG (NEG); CANNABINOIDS (THC) NEG (NEG); COCAINE (NOT ORDERED) NEG (NEG); OPIATES NEG (NEG); PHENCYCLIDINE(PCP) NEG (NEG); TRICYCLICS NEG (NEG)
[2016-06-29 04:50] LABS: BUN (BLOOD UREA NITROGEN) 29 MG/DL (6-23); CALCIUM, SERUM 7.1 MG/DL (8.5-10.4); CHLORIDE, SERUM 81 MMOL/L (96-112); CO2 (CARBON DIOXIDE) 20 MMOL/L (24-34); IRON, SERUM 71 MCG/DL (35-150); ULTRASENSITIVE TSH 0.527 MCIU/ML (0.358-3.740)
[2016-06-29 04:53] LABS: POTASSIUM, SERUM 2.3 MMOL/L (3.5-5.3); SODIUM, SERUM 117 MMOL/L (135-148)
[2016-06-29 04:54] LABS: CREATININE 1.57 MG/DL (0.70-1.30); GFR AFRICAN AMERICAN 63 ML/MIN (>=60); GFR NON AFRICAN AMERICAN 55 ML/MIN (>=60); GLUCOSE, SERUM 88 MG/DL (60-99)
[2016-06-29 04:55] LABS: FERRITIN 3456 NG/ML (26-388); FREE T4 0.89 NG/DL (0.76-1.46)
[2016-06-29 06:39] LABS: PROCALCITONIN 5.08 ng/mL (<0.5)
[2016-06-29 09:30] LABS: HEPATITIS B SURFACE ANTIGEN NON-REACTIVE (NON-REACT)
[2016-06-29 09:58] LABS: HEPATITIS C ANTIBODY NON-REACTIVE (NON-REACT)
[2016-06-29 09:59] LABS: HEPATITIS B CORE AB IGM NON-REACTIVE (NON-REAC)
[2016-06-29 10:00] LABS: HEP A ANTIBODY IGM NON-REACTIVE (NON-REACT)
[2016-06-29 13:08] LABS: BUN (BLOOD UREA NITROGEN) 29 MG/DL (6-23); CHLORIDE, SERUM 84 MMOL/L (96-112); CO2 (CARBON DIOXIDE) 18 MMOL/L (24-34); GLUCOSE, SERUM 96 MG/DL (60-99); POTASSIUM, SERUM 2.5 MMOL/L (3.5-5.3); SODIUM, SERUM 119 MMOL/L (135-148)
[2016-06-29 13:09] LABS: CREATININE 1.45 MG/DL (0.70-1.30); GFR AFRICAN AMERICAN 70 ML/MIN (>=60); GFR NON AFRICAN AMERICAN 60 ML/MIN (>=60)
[2016-06-29 14:39] LABS: BUN (BLOOD UREA NITROGEN) 26 MG/DL (6-23); CALCIUM, SERUM 7.4 MG/DL (8.5-10.4); CHLORIDE, SERUM 85 MMOL/L (96-112); CO2 (CARBON DIOXIDE) 18 MMOL/L (24-34); GLUCOSE, SERUM 108 MG/DL (60-99); SODIUM, SERUM 120 MMOL/L (135-148)
[2016-06-29 14:40] LABS: POTASSIUM, SERUM 2.2 MMOL/L (3.5-5.3)
[2016-06-29 14:42] LABS: CREATININE 1.33 MG/DL (0.70-1.30); GFR AFRICAN AMERICAN 77 ML/MIN (>=60); GFR NON AFRICAN AMERICAN 67 ML/MIN (>=60)
[2016-06-29 18:11] LABS: BUN (BLOOD UREA NITROGEN) 23 MG/DL (6-23); CALCIUM, SERUM 7.3 MG/DL (8.5-10.4); CHLORIDE, SERUM 86 MMOL/L (96-112); CO2 (CARBON DIOXIDE) 19 MMOL/L (24-34); GLUCOSE, SERUM 121 MG/DL (60-99); SODIUM, SERUM 122 MMOL/L (135-148)
[2016-06-29 18:14] LABS: CREATININE 1.26 MG/DL (0.70-1.30); GFR AFRICAN AMERICAN 83 ML/MIN (>=60); GFR NON AFRICAN AMERICAN 71 ML/MIN (>=60); POTASSIUM, SERUM 2.3 MMOL/L (3.5-5.3)
[2016-06-29 23:09] LABS: BUN (BLOOD UREA NITROGEN) 21 MG/DL (6-23); CALCIUM, SERUM 7.7 MG/DL (8.5-10.4); CHLORIDE, SERUM 88 MMOL/L (96-112); CO2 (CARBON DIOXIDE) 18 MMOL/L (24-34); GLUCOSE, SERUM 117 MG/DL (60-99); SODIUM, SERUM 123 MMOL/L (135-148)
[2016-06-29 23:12] LABS: POTASSIUM, SERUM 2.3 MMOL/L (3.5-5.3)
[2016-06-29 23:13] LABS: CREATININE 1.22 MG/DL (0.70-1.30); GFR AFRICAN AMERICAN 86 ML/MIN (>=60); GFR NON AFRICAN AMERICAN 74 ML/MIN (>=60)
[2016-06-30 01:57] LABS: HEMATOCRIT 32.2 % (40.0-51.0); HEMOGLOBIN 11.6 g/dL (13.6-17.8); MANUAL DIFF YES %; MEAN CORPUSCULAR HEMOGLOB 39.3 pg (26.0-34.0); MEAN CORPUSCULAR VOLUME 109.2 fL (80-100); MEAN PLATELET VOLUME 11.8 fL (9.2-13.0); PLATELET COUNT 141 10/3/uL (150-400); RBC DISTRIBUTION WIDTH 15.3 % (12.0-16.0); RED CELL COUNT 2.95 10/6/uL (4.7-6.1); WHITE BLOOD CELLS 24.5 10/3/uL (4.5-10.5)
[2016-06-30 02:04] LABS: INTERNATIONAL NORMAL RATI 1.6 UNITS (-); PROTIME (NOT ORD) 18.9 SEC (12.0-14.5)
[2016-06-30 02:21] LABS: ALBUMIN 1.9 G/DL (3.5-5.0); BUN (BLOOD UREA NITROGEN) 22 MG/DL (6-23); CHLORIDE, SERUM 88 MMOL/L (96-112); CO2 (CARBON DIOXIDE) 20 MMOL/L (24-34); GLUCOSE, SERUM 122 MG/DL (60-99); POTASSIUM, SERUM 2.6 MMOL/L (3.5-5.3); SGOT(AST) 291 U/L (5-40); SGPT(ALT) 116 U/L (5-65); SODIUM, SERUM 123 MMOL/L (135-148)
[2016-06-30 02:22] LABS: A/G RATIO 0.8 (0.7-1.9); ALKALINE PHOSPHATASE 553 U/L (45-117); CREATININE 1.33 MG/DL (0.70-1.30); GFR AFRICAN AMERICAN 77 ML/MIN (>=60); GFR NON AFRICAN AMERICAN 67 ML/MIN (>=60); GLOBULIN 2.5 G/DL (2.5-4.1); TOTAL PROTEIN 4.4 G/DL (6.0-8.5)
[2016-06-30 02:29] LABS: BAND NEUTROPHILS 18 %; LYMPHOCYTES 2 %; LYMPHOCYTES ABSOLUTE (CALC) 0.49 10/3/uL (0.67-4.30); NEUTROPHILS ABSOLUTE (CALC) 24.01 10/3/uL (2.02-8.40); SEGMENTED NEUTROPHIL (0) 80 %; TOTAL NUCLEATED CELLS 100
[2016-06-30 02:53] LABS: TOTAL BILIRUBIN 26.2 MG/DL (0-1.2)
[2016-07-01 07:27] LABS: INTERNATIONAL NORMAL RATI 1.7 UNITS (-); PROTIME (NOT ORD) 19.9 SEC (12.0-14.5)
[2016-07-01 07:32] LABS: HEMATOCRIT 32.1 % (40.0-51.0); HEMOGLOBIN 11.3 g/dL (13.6-17.8); MEAN CORPUS HGB CONC 35.2 g/dL (32.0-36.0); MEAN CORPUSCULAR HEMOGLOB 38.8 pg (26.0-34.0); MEAN CORPUSCULAR VOLUME 110.3 fL (80-100); MEAN PLATELET VOLUME 12.5 fL (9.2-13.0); NUCLEATED RED BLOOD CELLS 0.2 /100WBC (0-0); PLATELET COUNT 136 10/3/uL (150-400); RBC DISTRIBUTION WIDTH 15.7 % (12.0-16.0); RED CELL COUNT 2.91 10/6/uL (4.7-6.1)
[2016-07-01 07:33] LABS: WHITE BLOOD CELLS 35.6 10/3/uL (4.5-10.5)
[2016-07-01 07:34] LABS: MANUAL DIFF YES %
[2016-07-01 07:42] LABS: BAND NEUTROPHILS 2 %; IMMATURE GRANS ABSOLUTE (CALC) 1.07 10/3/uL (0.0-0.11); LYMPHOCYTES 4 %; LYMPHOCYTES ABSOLUTE (CALC) 1.42 10/3/uL (0.67-4.30); METAMYELOCYTES 3 %; MONOCYTES 8 %; MONOCYTES ABSOLUTE (CALC) 2.85 10/3/uL (0.21-1.20); NEUTROPHILS ABSOLUTE (CALC) 30.26 10/3/uL (2.02-8.40); PLATELET ESTIMATE SLT DEC (ADEQUATE); SEGMENTED NEUTROPHIL (0) 83 %; TOTAL NUCLEATED CELLS 100
[2016-07-01 07:43] LABS: TARGET CELLS OCC (1-2/OIF) (0-1/OIF)
[2016-07-01 07:45] LABS: ALBUMIN 1.8 G/DL (3.5-5.0); CALCIUM, SERUM 7.8 MG/DL (8.5-10.4); CO2 (CARBON DIOXIDE) 17 MMOL/L (24-34); GLUCOSE, SERUM 107 MG/DL (60-99); POTASSIUM, SERUM 3.2 MMOL/L (3.5-5.3); SGOT(AST) 292 U/L (5-40); SGPT(ALT) 116 U/L (5-65)
[2016-07-01 07:46] LABS: BUN (BLOOD UREA NITROGEN) 17 MG/DL (6-23); CHLORIDE, SERUM 100 MMOL/L (96-112); SODIUM, SERUM 131 MMOL/L (135-148)
[2016-07-01 07:47] LABS: A/G RATIO 0.8 (0.7-1.9); ALKALINE PHOSPHATASE 507 U/L (45-117); CREATININE 1.17 MG/DL (0.70-1.30); GFR AFRICAN AMERICAN 90 ML/MIN (>=60); GFR NON AFRICAN AMERICAN 78 ML/MIN (>=60); GLOBULIN 2.4 G/DL (2.5-4.1); TOTAL BILIRUBIN 25.5 MG/DL (0-1.2); TOTAL PROTEIN 4.2 G/DL (6.0-8.5)
[2016-07-02 07:17] LABS: INTERNATIONAL NORMAL RATI 1.8 UNITS (-); PROTIME (NOT ORD) 20.3 SEC (12.0-14.5)
[2016-07-02 07:31] LABS: ALBUMIN 1.8 G/DL (3.5-5.0); ALKALINE PHOSPHATASE 516 U/L (45-117); BUN (BLOOD UREA NITROGEN) 15 MG/DL (6-23); CALCIUM, SERUM 7.6 MG/DL (8.5-10.4); CHLORIDE, SERUM 102 MMOL/L (96-112); GLUCOSE, SERUM 113 MG/DL (60-99); POTASSIUM, SERUM 3.1 MMOL/L (3.5-5.3); SGOT(AST) 265 U/L (5-40); SGPT(ALT) 120 U/L (5-65); SODIUM, SERUM 134 MMOL/L (135-148)
[2016-07-02 07:34] LABS: A/G RATIO 0.8 (0.7-1.9); CO2 (CARBON DIOXIDE) 15 MMOL/L (24-34); CREATININE 1.01 MG/DL (0.70-1.30); GFR AFRICAN AMERICAN 108 ML/MIN (>=60); GFR NON AFRICAN AMERICAN 93 ML/MIN (>=60); GLOBULIN 2.3 G/DL (2.5-4.1); TOTAL BILIRUBIN 25.1 MG/DL (0-1.2); TOTAL PROTEIN 4.1 G/DL (6.0-8.5)
[2016-07-02 07:51] LABS: HEMOGLOBIN 12.4 g/dL (13.6-17.8); MEAN CORPUS HGB CONC 34.5 g/dL (32.0-36.0); MEAN CORPUSCULAR HEMOGLOB 38.8 pg (26.0-34.0); MEAN CORPUSCULAR VOLUME 112.2 fL (80-100); MEAN PLATELET VOLUME 12.8 fL (9.2-13.0); NUCLEATED RED BLOOD CELLS 0.2 /100WBC (0-0); PLATELET COUNT 129 10/3/uL (150-400); RBC DISTRIBUTION WIDTH 16.3 % (12.0-16.0)
[2016-07-02 07:57] LABS: WHITE BLOOD CELLS 41.9 10/3/uL (4.5-10.5)
[2016-07-02 07:58] LABS: HEMATOCRIT 35.9 % (40.0-51.0); MANUAL DIFF YES %
[2016-07-02 08:03] LABS: ANISOCYTOSIS 1+ (5-10/OIF) (0-5/OIF); BAND NEUTROPHILS 11 %; EOSINOPHILS 1 %; EOSINOPHILS ABSOLUTE (CALC) 0.42 10/3/uL (0.0-0.53); IMMATURE GRANS ABSOLUTE (CALC) 3.77 10/3/uL (0.0-0.11); LYMPHOCYTES 7 %; LYMPHOCYTES ABSOLUTE (CALC) 2.93 10/3/uL (0.67-4.30); METAMYELOCYTES 9 %; MONOCYTES 6 %; MONOCYTES ABSOLUTE (CALC) 2.51 10/3/uL (0.21-1.20); NEUTROPHILS ABSOLUTE (CALC) 32.26 10/3/uL (2.02-8.40); PLATELET ESTIMATE SLT DEC (ADEQUATE); SEGMENTED NEUTROPHIL (0) 66 %; TOTAL NUCLEATED CELLS 100
[2016-07-02 10:16] LABS: ALLENS TEST Pos; BE (BASE EXCESS) -8.9 MEQ/L (0 +/- 2.5); CARBOXYHEMOGLOBIN 1.2 % (0-3); HCO3 (ACTUAL BICARBONATE) 13.9 MEQ/L (23-27); HEMOBLOGIN CONTENT 12.7 G/DL (14-18); INSTRUMENT SERIAL # 8083; METHEMOGLOBIN 0.1 % (0-3); O2 CONTENT 16.7 VOL% (18-24); PCO2 (CO2 TENSION) 23 MMHG (35-45); PO2 (O2 TENSION) 69 MMHG (79-93); SAMPLE Arterial
[2016-07-03 05:34] LABS: INTERNATIONAL NORMAL RATI 1.8 UNITS (-); PROTIME (NOT ORD) 20.4 SEC (12.0-14.5)
[2016-07-03 05:54] LABS: ALBUMIN 1.8 G/DL (3.5-5.0); BUN (BLOOD UREA NITROGEN) 14 MG/DL (6-23); CALCIUM, SERUM 7.5 MG/DL (8.5-10.4); CHLORIDE, SERUM 104 MMOL/L (96-112); GLUCOSE, SERUM 103 MG/DL (60-99); HEMATOCRIT 35.3 % (40.0-51.0); HEMOGLOBIN 12.3 g/dL (13.6-17.8); MEAN CORPUS HGB CONC 34.8 g/dL (32.0-36.0); MEAN CORPUSCULAR VOLUME 112.1 fL (80-100); MEAN PLATELET VOLUME 13.1 fL (9.2-13.0); NUCLEATED RED BLOOD CELLS 0.1 /100WBC (0-0); PLATELET COUNT 109 10/3/uL (150-400); POTASSIUM, SERUM 3.2 MMOL/L (3.5-5.3); RBC DISTRIBUTION WIDTH 16.5 % (12.0-16.0); RED CELL COUNT 3.15 10/6/uL (4.7-6.1); SGOT(AST) 226 U/L (5-40); SGPT(ALT) 122 U/L (5-65); SODIUM, SERUM 134 MMOL/L (135-148)
[2016-07-03 06:01] LABS: A/G RATIO 0.7 (0.7-1.9); ALKALINE PHOSPHATASE 475 U/L (45-117); CO2 (CARBON DIOXIDE) 14 MMOL/L (24-34); CREATININE 1.05 MG/DL (0.70-1.30); GFR AFRICAN AMERICAN 103 ML/MIN (>=60); GFR NON AFRICAN AMERICAN 89 ML/MIN (>=60); GLOBULIN 2.5 G/DL (2.5-4.1); PHOSPHORUS, SERUM 0.6 MG/DL (2.5-4.5); TOTAL BILIRUBIN 25.6 MG/DL (0-1.2); TOTAL PROTEIN 4.3 G/DL (6.0-8.5)
[2016-07-03 06:49] LABS: MANUAL DIFF YES %; WHITE BLOOD CELLS 48.7 10/3/uL (4.5-10.5)
[2016-07-03 08:44] LABS: BAND NEUTROPHILS 31 %; EOSINOPHILS 1 %; EOSINOPHILS ABSOLUTE (CALC) 0.49 10/3/uL (0.0-0.53); LYMPHOCYTES 3 %; LYMPHOCYTES ABSOLUTE (CALC) 1.46 10/3/uL (0.67-4.30); MACROCYTES 1+ (5-10/OIF) (0-5/OIF); METAMYELOCYTES 5 %; MONOCYTES 2 %; MONOCYTES ABSOLUTE (CALC) 0.97 10/3/uL (0.21-1.20); MYELOCYTES 3 %; NEUTROPHILS ABSOLUTE (CALC) 41.88 10/3/uL (2.02-8.40); PLATELET ESTIMATE SLT DEC (ADEQUATE); SEGMENTED NEUTROPHIL (0) 55 %; TOTAL NUCLEATED CELLS 100
[2016-07-03 08:45] LABS: GIANT PLATELET OCC; VACUOLATED NEUTROPHILES OCC
[2016-07-03 08:46] LABS: TOXIC GRANULATION 1+
[2016-07-03 08:48] LABS: PATH REVIEW YES
[2016-07-04 06:52] LABS: HEMATOCRIT 33.6 % (40.0-51.0); HEMOGLOBIN 11.4 g/dL (13.6-17.8); MEAN CORPUS HGB CONC 33.9 g/dL (32.0-36.0); MEAN CORPUSCULAR HEMOGLOB 38.5 pg (26.0-34.0); MEAN CORPUSCULAR VOLUME 113.5 fL (80-100); PLATELET COUNT 94 10/3/uL (150-400); RBC DISTRIBUTION WIDTH 16.7 % (12.0-16.0); RED CELL COUNT 2.96 10/6/uL (4.7-6.1)
[2016-07-04 06:53] LABS: MANUAL DIFF YES %; WHITE BLOOD CELLS 47.6 10/3/uL (4.5-10.5)
[2016-07-04 06:58] LABS: INTERNATIONAL NORMAL RATI 1.8 UNITS (-); PROTIME (NOT ORD) 20.4 SEC (12.0-14.5)
[2016-07-04 07:11] LABS: ALBUMIN 1.6 G/DL (3.5-5.0); BUN (BLOOD UREA NITROGEN) 15 MG/DL (6-23); CALCIUM, SERUM 7.1 MG/DL (8.5-10.4); CHLORIDE, SERUM 107 MMOL/L (96-112); GLUCOSE, SERUM 106 MG/DL (60-99); POTASSIUM, SERUM 3.1 MMOL/L (3.5-5.3); SGOT(AST) 175 U/L (5-40); SGPT(ALT) 103 U/L (5-65); SODIUM, SERUM 136 MMOL/L (135-148)
[2016-07-04 07:12] LABS: ALKALINE PHOSPHATASE 402 U/L (45-117); CO2 (CARBON DIOXIDE) 13 MMOL/L (24-34); PHOSPHORUS, SERUM 1.1 MG/DL (2.5-4.5); TOTAL BILIRUBIN 24.2 MG/DL (0-1.2)
[2016-07-04 07:13] LABS: A/G RATIO 0.6 (0.7-1.9); BAND NEUTROPHILS 7 %; CREATININE 1.03 MG/DL (0.70-1.30); GFR AFRICAN AMERICAN 106 ML/MIN (>=60); GFR NON AFRICAN AMERICAN 91 ML/MIN (>=60); GLOBULIN 2.5 G/DL (2.5-4.1); IMMATURE GRANS ABSOLUTE (CALC) 5.71 10/3/uL (0.0-0.11); LYMPHOCYTES 8 %; LYMPHOCYTES ABSOLUTE (CALC) 3.81 10/3/uL (0.67-4.30); METAMYELOCYTES 9 %; MONOCYTES 2 %; MONOCYTES ABSOLUTE (CALC) 0.95 10/3/uL (0.21-1.20); MYELOCYTES 3 %; NEUTROPHILS ABSOLUTE (CALC) 37.13 10/3/uL (2.02-8.40); SEGMENTED NEUTROPHIL (0) 71 %; TOTAL NUCLEATED CELLS 100; TOTAL PROTEIN 4.1 G/DL (6.0-8.5)
[2016-07-04 07:14] LABS: PLATELET ESTIMATE DEC (ADEQUATE)
[2016-07-05 06:53] LABS: INTERNATIONAL NORMAL RATI 1.8 UNITS (-); PROTIME (NOT ORD) 20.6 SEC (12.0-14.5)
[2016-07-05 07:22] LABS: ALBUMIN 1.6 G/DL (3.5-5.0); BUN (BLOOD UREA NITROGEN) 13 MG/DL (6-23); CALCIUM, SERUM 7.2 MG/DL (8.5-10.4); CHLORIDE, SERUM 110 MMOL/L (96-112); GLUCOSE, SERUM 97 MG/DL (60-99); PHOSPHORUS, SERUM 1.1 MG/DL (2.5-4.5); POTASSIUM, SERUM 3.1 MMOL/L (3.5-5.3); SGOT(AST) 162 U/L (5-40); SGPT(ALT) 100 U/L (5-65); SODIUM, SERUM 137 MMOL/L (135-148)
[2016-07-05 07:27] LABS: A/G RATIO 0.7 (0.7-1.9); ALKALINE PHOSPHATASE 374 U/L (45-117); CO2 (CARBON DIOXIDE) 11 MMOL/L (24-34); CREATININE 0.93 MG/DL (0.70-1.30); GFR AFRICAN AMERICAN 119 ML/MIN (>=60); GFR NON AFRICAN AMERICAN 103 ML/MIN (>=60); GLOBULIN 2.3 G/DL (2.5-4.1); TOTAL BILIRUBIN 22.4 MG/DL (0-1.2); TOTAL PROTEIN 3.9 G/DL (6.0-8.5)
[2016-07-05 07:28] LABS: HEMATOCRIT 35.6 % (40.0-51.0); HEMOGLOBIN 12.1 g/dL (13.6-17.8); MEAN CORPUSCULAR HEMOGLOB 38.5 pg (26.0-34.0); MEAN CORPUSCULAR VOLUME 113.4 fL (80-100); MEAN PLATELET VOLUME 13.4 fL (9.2-13.0); NUCLEATED RED BLOOD CELLS 0.1 /100WBC (0-0); PLATELET COUNT 95 10/3/uL (150-400); RBC DISTRIBUTION WIDTH 16.4 % (12.0-16.0); RED CELL COUNT 3.14 10/6/uL (4.7-6.1)
[2016-07-05 07:35] LABS: MANUAL DIFF YES %
[2016-07-05 08:09] LABS: BAND NEUTROPHILS 13 %; IMMATURE GRANS ABSOLUTE (CALC) 0.84 10/3/uL (0.0-0.11); LYMPHOCYTES 3 %; METAMYELOCYTES 2 %; MONOCYTES 2 %; MONOCYTES ABSOLUTE (CALC) 0.84 10/3/uL (0.21-1.20); NEUTROPHILS ABSOLUTE (CALC) 40.32 10/3/uL (2.02-8.40); PLATELET ESTIMATE DEC (ADEQUATE); RBC MORPHOLOGY ABN (NORMAL); SEGMENTED NEUTROPHIL (0) 80 %; TOTAL NUCLEATED CELLS 100
[2016-07-06 07:29] LABS: INTERNATIONAL NORMAL RATI 1.8 UNITS (-); PROTIME (NOT ORD) 20.6 SEC (12.0-14.5)
[2016-07-06 07:42] LABS: ALBUMIN 1.9 G/DL (3.5-5.0); BUN (BLOOD UREA NITROGEN) 15 MG/DL (6-23); CALCIUM, SERUM 7.2 MG/DL (8.5-10.4); CHLORIDE, SERUM 110 MMOL/L (96-112); GLUCOSE, SERUM 106 MG/DL (60-99); SGOT(AST) 161 U/L (5-40); SGPT(ALT) 104 U/L (5-65); SODIUM, SERUM 138 MMOL/L (135-148)
[2016-07-06 07:43] LABS: ALKALINE PHOSPHATASE 394 U/L (45-117); GFR AFRICAN AMERICAN 88 ML/MIN (>=60); GFR NON AFRICAN AMERICAN 76 ML/MIN (>=60)
[2016-07-06 07:44] LABS: A/G RATIO 0.7 (0.7-1.9); CO2 (CARBON DIOXIDE) 14 MMOL/L (24-34); GLOBULIN 2.6 G/DL (2.5-4.1); TOTAL PROTEIN 4.5 G/DL (6.0-8.5)
[2016-07-06 07:58] LABS: GAMMA GT 854 U/L (5-85)
[2016-07-06 07:59] LABS: TOTAL BILIRUBIN 26.1 MG/DL (0-1.2)
[2016-07-06 08:09] LABS: HEMOGLOBIN 13.1 g/dL (13.6-17.8); MEAN CORPUS HGB CONC 34.5 g/dL (32.0-36.0); MEAN CORPUSCULAR HEMOGLOB 38.6 pg (26.0-34.0); MEAN CORPUSCULAR VOLUME 112.1 fL (80-100); MEAN PLATELET VOLUME 13.5 fL (9.2-13.0); PLATELET COUNT 116 10/3/uL (150-400); RBC DISTRIBUTION WIDTH 15.9 % (12.0-16.0); RED CELL COUNT 3.39 10/6/uL (4.7-6.1)
[2016-07-06 08:10] LABS: MANUAL DIFF YES %; WHITE BLOOD CELLS 40.8 10/3/uL (4.5-10.5)
[2016-07-06 08:39] LABS: BAND NEUTROPHILS 4 %; LYMPHOCYTES 3 %; LYMPHOCYTES ABSOLUTE (CALC) 1.22 10/3/uL (0.67-4.30); MONOCYTES 4 %; MONOCYTES ABSOLUTE (CALC) 1.63 10/3/uL (0.21-1.20); NEUTROPHILS ABSOLUTE (CALC) 37.94 10/3/uL (2.02-8.40); PLATELET ESTIMATE SLT DEC (ADEQUATE); SEGMENTED NEUTROPHIL (0) 89 %; TOTAL NUCLEATED CELLS 100
[2016-07-07 08:51] LABS: ALBUMIN 1.9 G/DL (3.5-5.0); ALKALINE PHOSPHATASE 401 U/L (45-117); BUN (BLOOD UREA NITROGEN) 17 MG/DL (6-23); CALCIUM, SERUM 7.3 MG/DL (8.5-10.4); CHLORIDE, SERUM 110 MMOL/L (96-112); GLUCOSE, SERUM 89 MG/DL (60-99); SGPT(ALT) 111 U/L (5-65); SODIUM, SERUM 137 MMOL/L (135-148)
[2016-07-07 08:55] LABS: A/G RATIO 0.6 (0.7-1.9); CO2 (CARBON DIOXIDE) 12 MMOL/L (24-34); CREATININE 1.05 MG/DL (0.70-1.30); GFR AFRICAN AMERICAN 103 ML/MIN (>=60); GFR NON AFRICAN AMERICAN 89 ML/MIN (>=60); GLOBULIN 3.1 G/DL (2.5-4.1); POTASSIUM, SERUM 3.8 MMOL/L (3.5-5.3); SGOT(AST) 210 U/L (5-40); TOTAL BILIRUBIN 26.2 MG/DL (0-1.2)
[2016-07-08 06:45] LABS: ALBUMIN 1.8 G/DL (3.5-5.0); BUN (BLOOD UREA NITROGEN) 20 MG/DL (6-23); CALCIUM, SERUM 7.2 MG/DL (8.5-10.4); CHLORIDE, SERUM 113 MMOL/L (96-112); GLUCOSE, SERUM 95 MG/DL (60-99); POTASSIUM, SERUM 3.4 MMOL/L (3.5-5.3); SGOT(AST) 168 U/L (5-40); SGPT(ALT) 107 U/L (5-65); SODIUM, SERUM 138 MMOL/L (135-148)
[2016-07-08 06:51] LABS: ALKALINE PHOSPHATASE 379 U/L (45-117); CO2 (CARBON DIOXIDE) 12 MMOL/L (24-34); CREATININE 1.47 MG/DL (0.70-1.30); GFR AFRICAN AMERICAN 69 ML/MIN (>=60); GFR NON AFRICAN AMERICAN 59 ML/MIN (>=60); TOTAL BILIRUBIN 25.1 MG/DL (0-1.2)
[2016-07-08 06:52] LABS: A/G RATIO 0.6 (0.7-1.9); GLOBULIN 2.9 G/DL (2.5-4.1); TOTAL PROTEIN 4.7 G/DL (6.0-8.5)
[2016-07-09 05:48] LABS: INTERNATIONAL NORMAL RATI 1.6 UNITS (-); PROTIME (NOT ORD) 19.2 SEC (12.0-14.5)
[2016-07-09 05:58] LABS: ALBUMIN 1.8 G/DL (3.5-5.0); ALKALINE PHOSPHATASE 382 U/L (45-117); BUN (BLOOD UREA NITROGEN) 19 MG/DL (6-23); CALCIUM, SERUM 7.6 MG/DL (8.5-10.4); CHLORIDE, SERUM 115 MMOL/L (96-112); GLUCOSE, SERUM 104 MG/DL (60-99); POTASSIUM, SERUM 3.1 MMOL/L (3.5-5.3); SGOT(AST) 186 U/L (5-40); SGPT(ALT) 103 U/L (5-65); SODIUM, SERUM 143 MMOL/L (135-148)
[2016-07-09 05:59] LABS: A/G RATIO 0.7 (0.7-1.9); CO2 (CARBON DIOXIDE) 11 MMOL/L (24-34); CREATININE 1.21 MG/DL (0.70-1.30); GFR AFRICAN AMERICAN 87 ML/MIN (>=60); GFR NON AFRICAN AMERICAN 75 ML/MIN (>=60); GLOBULIN 2.7 G/DL (2.5-4.1); TOTAL PROTEIN 4.5 G/DL (6.0-8.5)
[2016-07-09 06:00] LABS: TOTAL BILIRUBIN 23.8 MG/DL (0-1.2)
[2016-07-10 06:23] LABS: ALBUMIN 1.6 G/DL (3.5-5.0); BUN (BLOOD UREA NITROGEN) 19 MG/DL (6-23); CALCIUM, SERUM 7.5 MG/DL (8.5-10.4); CHLORIDE, SERUM 120 MMOL/L (96-112); GLUCOSE, SERUM 113 MG/DL (60-99); POTASSIUM, SERUM 3.2 MMOL/L (3.5-5.3); SGOT(AST) 169 U/L (5-40); SGPT(ALT) 99 U/L (5-65); SODIUM, SERUM 146 MMOL/L (135-148)
[2016-07-10 06:29] LABS: A/G RATIO 0.6 (0.7-1.9); ALKALINE PHOSPHATASE 343 U/L (45-117); CO2 (CARBON DIOXIDE) 12 MMOL/L (24-34); CREATININE 1.08 MG/DL (0.70-1.30); GFR AFRICAN AMERICAN 100 ML/MIN (>=60); GFR NON AFRICAN AMERICAN 86 ML/MIN (>=60); GLOBULIN 2.6 G/DL (2.5-4.1); TOTAL BILIRUBIN 22.3 MG/DL (0-1.2); TOTAL PROTEIN 4.2 G/DL (6.0-8.5)
[2016-07-11 07:47] LABS: HEMATOCRIT 36.1 % (40.0-51.0); HEMOGLOBIN 12.5 g/dL (13.6-17.8); MANUAL DIFF YES %; MEAN CORPUS HGB CONC 34.6 g/dL (32.0-36.0); MEAN CORPUSCULAR HEMOGLOB 37.7 pg (26.0-34.0); MEAN CORPUSCULAR VOLUME 108.7 fL (80-100); MEAN PLATELET VOLUME 13.1 fL (9.2-13.0); PLATELET COUNT 84 10/3/uL (150-400); RBC DISTRIBUTION WIDTH 16.2 % (12.0-16.0); RED CELL COUNT 3.32 10/6/uL (4.7-6.1); WHITE BLOOD CELLS 37.9 10/3/uL (4.5-10.5)
[2016-07-11 08:04] LABS: ALBUMIN 1.5 G/DL (3.5-5.0); ALKALINE PHOSPHATASE 349 U/L (45-117); BUN (BLOOD UREA NITROGEN) 16 MG/DL (6-23); CALCIUM, SERUM 7.3 MG/DL (8.5-10.4); CHLORIDE, SERUM 119 MMOL/L (96-112); CO2 (CARBON DIOXIDE) 12 MMOL/L (24-34); GLUCOSE, SERUM 111 MG/DL (60-99); PHOSPHORUS, SERUM 1.1 MG/DL (2.5-4.5); POTASSIUM, SERUM 3.1 MMOL/L (3.5-5.3); SGOT(AST) 153 U/L (5-40); SGPT(ALT) 97 U/L (5-65); SODIUM, SERUM 145 MMOL/L (135-148)
[2016-07-11 08:06] LABS: A/G RATIO 0.6 (0.7-1.9); CREATININE 1.07 MG/DL (0.70-1.30); GFR AFRICAN AMERICAN 101 ML/MIN (>=60); GFR NON AFRICAN AMERICAN 87 ML/MIN (>=60); GLOBULIN 2.6 G/DL (2.5-4.1); TOTAL BILIRUBIN 21.7 MG/DL (0-1.2); TOTAL PROTEIN 4.1 G/DL (6.0-8.5)
[2016-07-11 08:44] LABS: BAND NEUTROPHILS 7 %; IMMATURE GRANS ABSOLUTE (CALC) 0.38 10/3/uL (0.0-0.11); METAMYELOCYTES 1 %; MONOCYTES 3 %; MONOCYTES ABSOLUTE (CALC) 1.14 10/3/uL (0.21-1.20); NEUTROPHILS ABSOLUTE (CALC) 36.38 10/3/uL (2.02-8.40); SEGMENTED NEUTROPHIL (0) 89 %; TOTAL NUCLEATED CELLS 100
[2016-07-11 08:45] LABS: POLYCHROMASIA 1+ (2-5/OIF) (0-1/OIF)
[2016-07-11 08:46] LABS: BURR CELLS 1+ (3-10/OIF) (0-2/OIF); POIKILOCYTOSIS 1+ (5-10/OIF) (0-5/OIF); TOXIC GRANULATION 1+; VACUOLATED NEUTROPHILES 1+
[2016-07-11 08:48] LABS: PLATELET ESTIMATE DEC (ADEQUATE)
[2016-07-12 07:19] LABS: INTERNATIONAL NORMAL RATI 1.8 UNITS (-); PROTIME (NOT ORD) 20.5 SEC (12.0-14.5)
[2016-07-12 07:36] LABS: ALBUMIN 1.5 G/DL (3.5-5.0); ALKALINE PHOSPHATASE 355 U/L (45-117); BUN (BLOOD UREA NITROGEN) 18 MG/DL (6-23); CALCIUM, SERUM 7.4 MG/DL (8.5-10.4); CHLORIDE, SERUM 119 MMOL/L (96-112); GLUCOSE, SERUM 99 MG/DL (60-99); SGOT(AST) 144 U/L (5-40); SGPT(ALT) 101 U/L (5-65); SODIUM, SERUM 146 MMOL/L (135-148)
[2016-07-12 07:37] LABS: TOTAL BILIRUBIN 20.3 MG/DL (0-1.2)
[2016-07-12 07:38] LABS: A/G RATIO 0.6 (0.7-1.9); CO2 (CARBON DIOXIDE) 14 MMOL/L (24-34); CREATININE 0.98 MG/DL (0.70-1.30); GFR AFRICAN AMERICAN 112 ML/MIN (>=60); GFR NON AFRICAN AMERICAN 97 ML/MIN (>=60); GLOBULIN 2.5 G/DL (2.5-4.1)
[2016-07-12 07:39] LABS: POTASSIUM, SERUM 2.7 MMOL/L (3.5-5.3)
[2016-07-13 06:01] LABS: HEMATOCRIT 38.2 % (40.0-51.0); HEMOGLOBIN 12.8 g/dL (13.6-17.8); MANUAL DIFF YES %; MEAN CORPUS HGB CONC 33.5 g/dL (32.0-36.0); MEAN CORPUSCULAR VOLUME 110.4 fL (80-100); NUCLEATED RED BLOOD CELLS 0.3 /100WBC (0-0); PLATELET COUNT 64 10/3/uL (150-400); RBC DISTRIBUTION WIDTH 16.9 % (12.0-16.0); RED CELL COUNT 3.46 10/6/uL (4.7-6.1)
[2016-07-13 06:05] LABS: ALBUMIN 1.6 G/DL (3.5-5.0); BUN (BLOOD UREA NITROGEN) 16 MG/DL (6-23); CALCIUM, SERUM 7.6 MG/DL (8.5-10.4); CHLORIDE, SERUM 117 MMOL/L (96-112); GLUCOSE, SERUM 100 MG/DL (60-99); SGOT(AST) 131 U/L (5-40); SGPT(ALT) 92 U/L (5-65); SODIUM, SERUM 146 MMOL/L (135-148)
[2016-07-13 06:15] LABS: BAND NEUTROPHILS 6 %; EOSINOPHILS 1 %; EOSINOPHILS ABSOLUTE (CALC) 0.27 10/3/uL (0.0-0.53); LYMPHOCYTES 3 %; LYMPHOCYTES ABSOLUTE (CALC) 0.81 10/3/uL (0.67-4.30); MONOCYTES 6 %; MONOCYTES ABSOLUTE (CALC) 1.62 10/3/uL (0.21-1.20); PLATELET ESTIMATE DEC (ADEQUATE); SEGMENTED NEUTROPHIL (0) 84 %; TOTAL NUCLEATED CELLS 100
[2016-07-13 06:16] LABS: BURR CELLS 1+ (3-10/OIF) (0-2/OIF); POLYCHROMASIA 1+ (2-5/OIF) (0-1/OIF); TARGET CELLS FEW (3-10/OIF) (0-1/OIF)
[2016-07-13 06:27] LABS: ALKALINE PHOSPHATASE 385 U/L (45-117); CO2 (CARBON DIOXIDE) 14 MMOL/L (24-34); POTASSIUM, SERUM 2.9 MMOL/L (3.5-5.3)
[2016-07-13 06:35] LABS: A/G RATIO 0.6 (0.7-1.9); CREATININE 1.09 MG/DL (0.70-1.30); GFR AFRICAN AMERICAN 99 ML/MIN (>=60); GFR NON AFRICAN AMERICAN 85 ML/MIN (>=60); GLOBULIN 2.5 G/DL (2.5-4.1); TOTAL PROTEIN 4.1 G/DL (6.0-8.5)
[2016-07-13 07:29] LABS: ACETONE NEG
[2016-07-13 07:45] LABS: ASCORBIC ACID (UR NOT ORDER) 20 (NEG); BILIRUBIN, URINE MODERATE (NEG); KETONE, URINE NEGATIVE (NEG); LEUKOCYTE ESTERASE(NOT OR NEG (NEG); WBC (NOT ORDERED) (RFLEX) 2 (0-5)
[2016-07-13 09:26] LABS: BE (BASE EXCESS) -9.1 MEQ/L (0 +/- 2.5); CARBOXYHEMOGLOBIN 1.9 % (0-3); HCO3 (ACTUAL BICARBONATE) 12.8 MEQ/L (23-27); HEMOBLOGIN CONTENT 13.1 G/DL (14-18); INSTRUMENT SERIAL # 8083; METHEMOGLOBIN 0.2 % (0-3); PCO2 (CO2 TENSION) 20 MMHG (35-45); PO2 (O2 TENSION) 49 MMHG (79-93); SAMPLE Arterial; pH 7.43 (7.37-7.43)
[2016-07-13 16:36] LABS: CHLORIDE, SERUM 115 MMOL/L (96-112); GLUCOSE, SERUM 101 MG/DL (60-99); POTASSIUM, SERUM 3.2 MMOL/L (3.5-5.3); SODIUM, SERUM 147 MMOL/L (135-148)
[2016-07-13 16:42] LABS: BUN (BLOOD UREA NITROGEN) 21 MG/DL (6-23); CO2 (CARBON DIOXIDE) 11 MMOL/L (24-34)
[2016-07-13 16:43] LABS: CREATININE 1.71 MG/DL (0.70-1.30); GFR AFRICAN AMERICAN 57 ML/MIN (>=60); GFR NON AFRICAN AMERICAN 49 ML/MIN (>=60)
[2016-07-13 20:09] LABS: HEMATOCRIT 41.3 % (40.0-51.0); HEMOGLOBIN 13.5 g/dL (13.6-17.8); MEAN CORPUS HGB CONC 32.7 g/dL (32.0-36.0); MEAN CORPUSCULAR HEMOGLOB 37.2 pg (26.0-34.0); NUCLEATED RED BLOOD CELLS 0.6 /100WBC (0-0); RBC DISTRIBUTION WIDTH 17.2 % (12.0-16.0); RED CELL COUNT 3.63 10/6/uL (4.7-6.1)
[2016-07-13 20:10] LABS: MEAN CORPUSCULAR VOLUME 113.8 fL (80-100); WHITE BLOOD CELLS 11.4 10/3/uL (4.5-10.5)
[2016-07-13 20:12] LABS: PLATELET COUNT 44 10/3/uL (150-400)
[2016-07-13 20:14] LABS: MANUAL DIFF YES %
[2016-07-13 20:18] LABS: INTERNATIONAL NORMAL RATI 2.6 UNITS (-)
[2016-07-13 20:19] LABS: PROTIME (NOT ORD) 27.7 SEC (12.0-14.5)
[2016-07-13 20:23] LABS: ALBUMIN 1.4 G/DL (3.5-5.0); BUN (BLOOD UREA NITROGEN) 21 MG/DL (6-23); CALCIUM, SERUM 7.7 MG/DL (8.5-10.4); CHLORIDE, SERUM 117 MMOL/L (96-112); GLUCOSE, SERUM 86 MG/DL (60-99); POTASSIUM, SERUM 3.2 MMOL/L (3.5-5.3); SGOT(AST) 219 U/L (5-40); SGPT(ALT) 94 U/L (5-65); SODIUM, SERUM 150 MMOL/L (135-148)
[2016-07-13 20:24] LABS: A/G RATIO 0.6 (0.7-1.9); ALKALINE PHOSPHATASE 336 U/L (45-117); CO2 (CARBON DIOXIDE) 13 MMOL/L (24-34); GFR AFRICAN AMERICAN 47 ML/MIN (>=60); GFR NON AFRICAN AMERICAN 41 ML/MIN (>=60); GLOBULIN 2.5 G/DL (2.5-4.1); TOTAL BILIRUBIN 18.9 MG/DL (0-1.2); TOTAL PROTEIN 3.9 G/DL (6.0-8.5)
[2016-07-13 20:30] LABS: BAND NEUTROPHILS 52 %; IMMATURE GRANS ABSOLUTE (CALC) 0.91 10/3/uL (0.0-0.11); LYMPHOCYTES 2 %; LYMPHOCYTES ABSOLUTE (CALC) 0.23 10/3/uL (0.67-4.30); METAMYELOCYTES 8 %; MONOCYTES 3 %; MONOCYTES ABSOLUTE (CALC) 0.34 10/3/uL (0.21-1.20); NEUTROPHILS ABSOLUTE (CALC) 9.92 10/3/uL (2.02-8.40); SEGMENTED NEUTROPHIL (0) 35 %; TOTAL NUCLEATED CELLS 100; TOXIC GRANULATION 1+; VACUOLATED NEUTROPHILES 2+
[2016-07-13 20:31] LABS: POLYCHROMASIA 1+ (2-5/OIF) (0-1/OIF)
[2016-07-13 21:05] LABS: ALBUMIN 1.4 G/DL (3.5-5.0)
[2016-07-13 21:06] LABS: DIRECT BILIRUBIN 15.2 MG/DL (0.0-0.4); INDIRECT BILIRUBIN(NOT ORDER) 3.9 MG/DL (0.1-0.9); PHOSPHORUS, SERUM 3.4 MG/DL (2.5-4.5); TOTAL BILIRUBIN 19.1 MG/DL (0-1.2); TOTAL PROTEIN 3.9 G/DL (6.0-8.5)
[2016-07-13 21:35] LABS: PROCALCITONIN 25.9 ng/mL (<0.5)
[2016-07-14 05:11] LABS: CHLORIDE, SERUM 113 MMOL/L (96-112); POTASSIUM, SERUM 3.4 MMOL/L (3.5-5.3); SODIUM, SERUM 148 MMOL/L (135-148)
[2016-07-14 05:13] LABS: CO2 (CARBON DIOXIDE) 24 MMOL/L (24-34)
[2016-07-14 05:34] LABS: ASCORBIC ACID (UR NOT ORDER) NEG (NEG); BILIRUBIN, URINE MODERATE (NEG); KETONE, URINE NEGATIVE (NEG); LEUKOCYTE ESTERASE(NOT OR NEG (NEG); WBC (NOT ORDERED) (RFLEX) 4 (0-5)
[2016-07-14 05:51] LABS: MEAN CORPUS HGB CONC 33.5 g/dL (32.0-36.0); MEAN CORPUSCULAR HEMOGLOB 38.3 pg (26.0-34.0); MEAN CORPUSCULAR VOLUME 114.2 fL (80-100); MEAN PLATELET VOLUME 14.5 fL (9.2-13.0); NUCLEATED RED BLOOD CELLS 0.5 /100WBC (0-0); RBC DISTRIBUTION WIDTH 17.2 % (12.0-16.0)
[2016-07-14 06:03] LABS: HEMATOCRIT 31.3 % (40.0-51.0); HEMOGLOBIN 10.5 g/dL (13.6-17.8); PLATELET COUNT 31 10/3/uL (150-400); RED CELL COUNT 2.74 10/6/uL (4.7-6.1); WHITE BLOOD CELLS 16.2 10/3/uL (4.5-10.5)
[2016-07-14 06:04] LABS: MANUAL DIFF YES %
[2016-07-14 06:18] LABS: SEGMENTED NEUTROPHIL (0) 66 %; TOTAL NUCLEATED CELLS 100
[2016-07-14 06:19] LABS: ANISOCYTOSIS 1+ (5-10/OIF) (0-5/OIF); BAND NEUTROPHILS 27 %; LYMPHOCYTES 5 %; LYMPHOCYTES ABSOLUTE (CALC) 0.81 10/3/uL (0.67-4.30); MONOCYTES 2 %; MONOCYTES ABSOLUTE (CALC) 0.32 10/3/uL (0.21-1.20); NEUTROPHILS ABSOLUTE (CALC) 15.07 10/3/uL (2.02-8.40); RBC MORPHOLOGY ABN (NORMAL); TARGET CELLS FEW (3-10/OIF) (0-1/OIF)
[2016-07-14 06:25] LABS: INTERNATIONAL NORMAL RATI 2.3 UNITS (-); PROTIME (NOT ORD) 25.4 SEC (12.0-14.5)
[2016-07-14 07:12] LABS: BUN (BLOOD UREA NITROGEN) 26 MG/DL (6-23); CREATININE 2.15 MG/DL (0.70-1.30)
[2016-07-14 07:13] LABS: GFR AFRICAN AMERICAN 43 ML/MIN (>=60); GFR NON AFRICAN AMERICAN 37 ML/MIN (>=60)
[2016-07-14 07:14] LABS: GLUCOSE, SERUM 92 MG/DL (60-99)
[2016-07-14 07:15] LABS: PHOSPHORUS, SERUM 4.3 MG/DL (2.5-4.5)
[2016-07-14 07:16] LABS: DIRECT BILIRUBIN 14.6 MG/DL (0.0-0.4)
[2016-07-14 07:17] LABS: INDIRECT BILIRUBIN(NOT ORDER) 4.3 MG/DL (0.1-0.9); TOTAL BILIRUBIN 18.9 MG/DL (0-1.2)
[2016-07-14 07:18] LABS: ALKALINE PHOSPHATASE 216 U/L (45-117)
[2016-07-14 07:19] LABS: SGOT(AST) 562 U/L (5-40); SGPT(ALT) 158 U/L (5-65)
[2016-07-14 07:20] LABS: CALCIUM, SERUM 7.4 MG/DL (8.5-10.4)
== END 2016-07-19 05:33 | disposition expired | DRG 871 ==
LOC: ER 21:39 → ER/OF 06-29 04:02 → IMCU 06-29 06:38 → 5SO 06-30 18:09 → MIC 07-13 19:58 → 5SO 07-18 14:36
PROVIDERS: Hospitalist; Internal Medicine; Internal Medicine Hepatology
DX: A41.9 Sepsis, unspecified organism (principal); R65.21 Severe sepsis with septic shock; J96.00 Acute respiratory failure, unspecified whether with hypoxia or hypercapnia; N17.0 Acute kidney failure with tubular necrosis; E43 Unspecified severe protein-calorie malnutrition; E87.2 Acidosis; J18.1 Lobar pneumonia, unspecified organism; D69.6 Thrombocytopenia, unspecified; E87.1 Hypo-osmolality and hyponatremia; K70.30 Alcoholic cirrhosis of liver without ascites; K70.10 Alcoholic hepatitis without ascites; K70.40 Alcoholic hepatic failure without coma; E87.6 Hypokalemia; F10.10 Alcohol abuse, uncomplicated; E88.09 Other disorders of plasma-protein metabolism, not elsewhere classified; Z79.899 Other long term (current) drug therapy; Z83.3 Family history of diabetes mellitus; Z80.42 Family history of malignant neoplasm of prostate; Z96.652 Presence of left artificial knee joint; Z90.49 Acquired absence of other specified parts of digestive tract; Z98.890 Other specified postprocedural states; Z87.891 Personal history of nicotine dependence; E80.6 Other disorders of bilirubin metabolism; R53.81 Other malaise; F41.9 Anxiety disorder, unspecified; Z51.5 Encounter for palliative care; Z66 Do not resuscitate
CPT/HCPCS: 36415; 36600; 70450; 71010; 71020; 74176; 76705; 80048; 80053; 80069; 80074; 80076; 80305; 80307; 81001; 82009; 82140; 82247; 82248; 82330; 82390; 82607; 82728; 82746; 82803; 82805; 82947; 82977; 83540; 83605; 83615; 83690; 83735; 83930; 84100; 84132; 84145; 84295; 84439; 84443; 85014; 85025; 85610; 85730; 86900; 86901; 87040; 87077; 87150; 87186; 87493; 87493-59; 87641; 93005; 94640; 96361; 96365; 96375; 97110-GP; 97116-GP; 97161-GP; 99291; A9270-GY; C1751; G8978-CK-GP; G8979-CH-GP; J0692; J2185; J2405; J2543; J2550; J2710; J3010; J3370; P9047; P9059